=== PATIENT | male | born 1995 | race Caucasian/White ===

== ENCOUNTER 2019-10-18 02:46 | Emergency (ER) | payer MEDICAID ==
[2019-10-18 02:55] VITALS: BP 136/88; PULSE 71; RESP 16; TEMP 97.7
--- NOTE | 2019-10-18 03:34 | ED ---
Headache HPI - General Chief Complaint: Headache Stated Complaint: Migraine Time Seen by Provider: 10/18/19 03:16 Mode of arrival: wheelchair Limitations: no limitations - History of Present Illness Initial Comments: Patient is 24-year-old man who presents to be evaluated for occipital headache that is been intermittent going back for 2-3 weeks. He does indicate that it seems to come on after sexual activity. He describes pain as severe. No fever or chills. No neck stiffness. No neurologic symptoms. MD Complaint: headache -: week(s) Onset Description: with exertion Location: right, occipital Severity: severe Quality: aching Consistency: intermittent Improves With: nothing Worsens With: exertion/activity Context: occurred during intercourse - Related Data Allergies Allergy/AdvReac Type Severity Reaction Status Date / Time shellfish derived Allergy Unknown Verified 10/18/19 02:55 propofol AdvReac Unknown Verified 10/18/19 02:55 Review of Systems ROS Statement: Those systems with pertinent positive or pertinent negative responses have been documented in the HPI. ROS Other: All systems not noted in ROS Statement are negative. Constitutional: Denies: fever, chills, weakness Eyes: Denies: eye pain, vision change ENT: Denies: ear pain, congestion Respiratory: Denies: cough Cardiovascular: Denies: chest pain, palpitations, syncope Musculoskeletal: Denies: back pain Skin: Denies: rash Neurological: Reports: headache. Denies: weakness, numbness, paresthesias, confusion Past Medical History Past Medical History: No Reported History History of Any Multi-Drug Resistant Organisms: None Reported Past Surgical History: No Surgical Hx Reported Past Psychological History: No Psychological Hx Reported Smoking Status: Current every day smoker Past Alcohol Use History: Occasional Past Drug Use History: None Reported General Exam Limitations: no limitations General appearance: alert, in no apparent distress Head exam: Present: atraumatic, normocephalic, normal inspection Eye exam: Present: normal appearance, PERRL, EOMI. Absent: scleral icterus, conjunctival injection, nystagmus ENT exam: Present: normal oropharynx Neck exam: Present: normal inspection, full ROM. Absent: tenderness, meningismus Neurological exam: Present: alert, oriented X3, CN II-XII intact. Absent: motor sensory deficit Skin exam: Present: warm, dry, intact, normal color. Absent: rash Course Vital Signs 09/06/20 02:50 Temperature 97.7 F Pulse Rate 71 Respiratory 16 Rate Blood Pressure 136/88 O2 Sat by Pulse 100 Oximetry Medical Decision Making - Medical Decision Making The patient is 24-year-old man with her minute headaches going back between 2-3 weeks. Computed tomography scan is negative. Given that the headache has been going on over 12 hours, discussed risks, benefits, and indications for lumbar puncture. At this point the patient is declining this. He states that the headache has completely resolved now. He will return should the pain recur. Discussed further care and follow-up Disposition Clinical Impression: Headache Disposition: HOME SELF-CARE Condition: Good Instructions (If sedation given, give patient instructions): Acute Headache (ED) Is patient prescribed a controlled substance at d/c from ED?: No Referrals: None,Stated [Primary Care Provider] - 1-2 days Jacey Brownlee MD [REFERRING] - 1-2 days
[2019-10-18] MEDS ORDERED: diphenhydrAMINE 50 MG/ML 1 ML VIAL IVP STA (03:36)
[2019-10-18] MEDS ORDERED: SODIUM CHLORIDE 0.9% 500 ML 500 ML IV STA (03:37)
[2019-10-18] MEDS ORDERED: PROMETHAZINE INJ 25 MG in SODIUM CHLORIDE 0.9% 50 ML IVPB ONE (04:00)
--- NOTE | 2019-10-18 04:24 | CT ---
EXAMINATION TYPE: CT brain wo con DATE OF EXAM: 10/18/2019 COMPARISON: None HISTORY: Headache Right occipital headache CT DLP: 1201.4 mGycm Automated exposure control for dose reduction was used. Ventricles of normal size. There is no mass effect nor midline shift. There is no sign of intracrania l hemorrhage. Calvarium is intact. Skull base is intact. There is no evidence of cerebral edema. IMPRESSION: Negative unenhanced head CT scan.
== END 2019-10-18 05:14 | disposition home or self-care (01) ==
LOC: EC 02:46
DX: R51 Headache (principal); F17.200 Nicotine dependence, unspecified, uncomplicated; Z88.4 Allergy status to anesthetic agent; Z91.013 Allergy to seafood
CPT/HCPCS: 70450; 99284; 96365; 96375; 96361; J1200; J2550